=== PATIENT | female | born 2000 | race Caucasian/White ===

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

== ENCOUNTER → 2022-01-11 | Outpatient (CLI) | payer BC | LOC: M WHC 06:51 | PROVIDERS: ATTEND Nurse Practitioner Family | DX: K52.9 Noninfective gastroenteritis and colitis, unspecified (principal) ==

== ENCOUNTER → 2022-04-15 | Outpatient (REF) | payer BC | LOC: M LAB REF 11:56 | PROVIDERS: ATTEND Physician Assistant Medical | DX: R07.0 Pain in throat (principal) ==

== ENCOUNTER → 2023-03-19 | Outpatient (CLI) | payer BC ==
[2023-03-19 17:10] LABS: HEMATOCRIT 39.4 % (36.0-47.0); HEMOGLOBIN 13.3 g/dl (12.0-15.5); MEAN CORPUSCULAR HEMOGLOBIN 30.4 pg (27.0-33.0); MEAN CORPUSCULAR HGB CONC 33.8 g/dl (32.0-36.5); PLATELET COUNT, AUTOMATED 208 10^3/uL (150-450); RED BLOOD COUNT 4.38 10^6/uL (4.00-5.40); WHITE BLOOD COUNT 10.8 10^3/uL (4.0-10.0)
[2023-03-19 18:10] LABS: HIV 1&2 SCREEN NEGATIVE (NEGATIVE)
[2023-03-19 18:19] LABS: HEPATITIS C VIRUS ABY INDEX 0.12 INDEX (<0.8)
[2023-03-19 19:08] LABS: GC DNA AMPLIFICATION NEGATIVE (NEGATIVE)
== END ==
LOC: M PLALAB 14:45
PROVIDERS: ATTEND Advanced Practice Midwife
DX: Z34.81 Encounter for supervision of other normal pregnancy, first trimester (principal)

== ENCOUNTER → 2023-07-10 | Outpatient (CLI) | payer BC ==
[2023-07-10 14:27] LABS: HEMATOCRIT 33.6 % (36.0-47.0); HEMOGLOBIN 11.2 g/dl (12.0-15.5); MEAN CORPUSCULAR HEMOGLOBIN 31.1 pg (27.0-33.0); MEAN CORPUSCULAR HGB CONC 33.3 g/dl (32.0-36.5); MEAN CORPUSCULAR VOLUME 93.3 fl (80.0-96.0); PLATELET COUNT, AUTOMATED 169 10^3/uL (150-450); WHITE BLOOD COUNT 11.1 10^3/uL (4.0-10.0)
== END ==
LOC: M PLALAB 08:20
PROVIDERS: ATTEND Advanced Practice Midwife
DX: Z34.82 Encounter for supervision of other normal pregnancy, second trimester (principal)

== ENCOUNTER → 2023-07-30 | Outpatient (CLI) | payer BC ==
[2023-07-30 16:21] LABS: ALKALINE PHOSPHATASE 96 U/L (46-116); ALT/SGPT 16 U/L (7.0-40); AST/SGOT 16 U/L (<34); BILIRUBIN,TOTAL 0.3 MG/DL (0.3-1.2); BLOOD UREA NITROGEN 9 MG/DL (9-23); CALCIUM LEVEL 8.9 MG/DL (8.5-10.1); CARBON DIOXIDE LEVEL 24 MMOL/L (20-31); CHLORIDE LEVEL 106 MMOL/L (98-107); CREATININE FOR GFR 0.48 MG/DL (0.55-1.30); GLOMERULAR FILTRATION RATE > 60.0 (>60); GLUCOSE, FASTING 84 MG/DL (60-100); IRON (FE) 51 UG/DL (50-170); POTASSIUM SERUM 4.4 MMOL/L (3.5-5.1); SODIUM LEVEL 135 MMOL/L (136-145); TOTAL PROTEIN 6.4 G/DL (5.7-8.2)
[2023-07-30 16:22] LABS: FREE T4 1.01 NG/DL (0.89-1.76); THYROID STIMULATING HORMONE 1.897 uIU/ML (0.55-4.78)
[2023-07-30 16:23] LABS: FERRITIN 5.9 NG/ML (7.3-270.7)
== END ==
LOC: M PLALAB 12:05
PROVIDERS: ATTEND Advanced Practice Midwife
DX: R55 Syncope and collapse (principal); R42 Dizziness and giddiness; Z34.92 Encounter for supervision of normal pregnancy, unspecified, second trimester

== ENCOUNTER → 2023-09-11 | Outpatient (REF) | payer BC | LOC: M SFHCWAGY 17:17 | PROVIDERS: ATTEND Advanced Practice Midwife | DX: O99.343 Other mental disorders complicating pregnancy, third trimester (principal) ==

== ENCOUNTER 2023-10-06 03:57 | Inpatient (IN) | payer BC ==
[~2023-10-06] VITALS: Ht 167.6 cm; Wt 86.7 kg
[2023-10-06] VITALS (29 sets, daily range): BP systolic 86–158; BP diastolic 44–92; O2SAT 98–100
[2023-10-06] MEDS ORDERED: PROZ20CA11 PO (04:17)
[2023-10-06] MEDS ORDERED: PRENTAB9 PO (04:17)
[2023-10-06] MEDS ORDERED: HOME MED LIST COMPLETE! XX SCH (04:20)
[2023-10-06] MEDS ORDERED: OXYTOCIN DRIP 30 UNITS in IV 1 EA IV PRN (04:55)
[2023-10-06] MEDS ORDERED: LIDOCAINE 1% MDV 20ML VIAL INFIL PRN (04:55)
[2023-10-06] MEDS: PENICILLIN G POTASSIUM 5 MU IV 5 MU in D5W MINI-BAG PLUS 100 ML IV STA (05:17)
[2023-10-06 05:19] LABS: HEMATOCRIT 33.6 % (36.0-47.0); MEAN CORPUSCULAR HEMOGLOBIN 27.1 pg (27.0-33.0); MEAN CORPUSCULAR HGB CONC 32.7 g/dl (32.0-36.5); MEAN CORPUSCULAR VOLUME 82.8 fl (80.0-96.0); PLATELET COUNT, AUTOMATED 173 10^3/uL (150-450); RED BLOOD COUNT 4.06 10^6/uL (4.00-5.40); WHITE BLOOD COUNT 12.8 10^3/uL (4.0-10.0)
[2023-10-06] MEDS: PEN G POT 3,000,000 UNIT/50 ML 3,000,000 UNIT in IV 1 EA IV SCH (09:16)
[2023-10-06] MEDS ORDERED: METHYLERGONOVINE MALEATE 0.2MG/ML 1ML VIAL IM PRN (09:50)
[2023-10-06] MEDS ORDERED: OXYTOCIN INJ 10UNITS/ML 1ML VIAL IM PRN (09:50)
[2023-10-06] MEDS ORDERED: TRANEXAMIC ACID INJection 1,000 MG in NS 100 ML IV PRN (09:50)
[2023-10-06] MEDS ORDERED: CARBOPROST TROMETHAMINE 250 MCG/ML AMP IM PRN (09:50)
[2023-10-06] MEDS ORDERED: NALOXONE INJ 0.4MG/1ML VIAL IV PRN (11:15)
[2023-10-06] MEDS ORDERED: ONDANSETRON 4MG 2ML VIAL IV PRN (11:15)
[2023-10-06] MEDS ORDERED: EPIDURAL/PCA KEYS XX PRN (11:15)
[2023-10-06] MEDS ORDERED: LR 500 ML IV PRN (11:15)
[2023-10-06] MEDS ORDERED: ePHEDrine SULFATE 25 MG/5 ML(5MG/ML) SYRINGE IVP PRN (11:15)
[2023-10-06] MEDS ORDERED: diphenhydrAMINE 50MG/ML VIAL IV PRN (11:15)
[2023-10-06] MEDS: FENTANYL/ROPIVACAINE/NACL BAG 100 ML EPIDURAL SCH (11:56)
[2023-10-06] MEDS: LR 1,000 ML IV SCH (13:14)
[2023-10-06] MEDS: OXYTOCIN DRIP 30 UNITS in IV 1 EA IV SCH (13:14)
[2023-10-06] MEDS ORDERED: DIBUCAINE 1% OINTMENT 30GM TOP PRN (16:25)
[2023-10-06] MEDS ORDERED: MOM 30ML SUSPENSION UDC PO PRN (16:25)
[2023-10-06] MEDS ORDERED: IBUPROFEN 600MG TAB PO PRN (16:25)
[2023-10-06] MEDS ORDERED: ANUSOL HC CREAM 30GM TOP PRN (16:25)
[2023-10-06] MEDS ORDERED: ACETAMINOPHEN TAB 650MG DOSE (2X325MG) PO PRN (16:25)
[2023-10-06] MEDS ORDERED: DOCUSATE SODIUM 100MG CAPSULE PO PRN (16:25)
[2023-10-06] MEDS ORDERED: RHOGAM 300MCG (1500IU) INJ IM SCH (16:25)
[2023-10-06] MEDS ORDERED: ACETAMINOPHEN 500 MG TAB PO PRN (16:25)
[2023-10-06] MEDS: IBUPROFEN 800 MG TAB PO PRN (18:31)
[2023-10-07 06:06] VITALS: BP 100/55
[2023-10-07] MEDS ORDERED: FLUoxetine 20MG CAP PO SCH (09:00)
[2023-10-07] MEDS: PRENATAL VITAMINS CHEWABLE TABLET PO SCH (09:15)
[2023-10-07 18:00] VITALS: BP 117/76; O2SAT 99
[2023-10-07] MEDS: FLUoxetine 20MG CAP PO SCH (21:06)
[2023-10-08 06:00] VITALS: BP 115/57
[2023-10-08] MEDS: MEASLES,MUMPS,RUBELLA VACCINE INJ (MMR-II) SC.IMMUN ONE (09:00)
== END 2023-10-08 18:01 | disposition home or self-care (01) | DRG 560 ==
LOC: M LDO 03:57 → M LDI 04:44 → M OBS 17:45
PROVIDERS: ADMIT Specialist; ATTEND Advanced Practice Midwife
PROC: 10E0XZZ Delivery of Products of Conception, External Approach (ICD-10-PCS; principal; 2023-10-06)
PROC: 0HQ9XZZ Repair Perineum Skin, External Approach (ICD-10-PCS; 2023-10-06)
DX: O99.824 Streptococcus B carrier state complicating childbirth (principal); O69.81X0 Labor and delivery complicated by cord around neck, without compression, not applicable or unspecified; Z3A.39 39 weeks gestation of pregnancy; Z37.0 Single live birth; O70.0 First degree perineal laceration during delivery

== ENCOUNTER → 2024-06-16 | Outpatient (CLI) | payer BC ==
[~2024-06-16] MED LIST: PRENTAB9 PO; PROZ20CA11 PO
[2024-06-16 18:51] LABS: THYROID STIMULATING HORMONE 2.489 uIU/ML (0.55-4.78)
[2024-06-16 18:53] LABS: FREE T4 1.19 NG/DL (0.89-1.76)
== END ==
LOC: M PLALAB 15:56
PROVIDERS: ATTEND Advanced Practice Midwife
DX: Z12.4 Encounter for screening for malignant neoplasm of cervix (principal); R63.4 Abnormal weight loss
CPT/HCPCS: 36415; 84439; 84443; G0123

== ENCOUNTER → 2024-12-27 | Outpatient (REF) | payer BC | LOC: M SFHCCLAY 15:14 | PROVIDERS: ATTEND Nurse Practitioner Family | DX: R19.7 Diarrhea, unspecified (principal) ==